=== PATIENT | female | born 1940 | race Caucasian/White ===

== ENCOUNTER 2016-08-18 08:00 | Outpatient (CLI) | payer OTHER, MEDICARE | END 2016-08-18 23:59 | DX: Z00.01 Encounter for general adult medical examination with abnormal findings (principal); R53.83 Other fatigue; E03.9 Hypothyroidism, unspecified ==

== ENCOUNTER 2018-12-06 11:48 | Outpatient (CLI) | payer OTHER, MEDICARE ==
[2018-12-06 17:27] LABS: BILIRUBIN,URINE NEGATIVE (NEGATIVE); GLUCOSE, URINE (UA) NEGATIVE (NEGATIVE); KETONES,URINE (UA) NEGATIVE (NEGATIVE); LEUKOCYTE ESTERASE, URINE NEGATIVE (NEGATIVE); NITRITE,URINE NEGATIVE (NEGATIVE); OCCULT BLOOD,URINE NEGATIVE (NEGATIVE); PROTEIN,URINE NEGATIVE (NEGATIVE); UROBILINOGEN,URINE 0.2 (NORMAL) E.U./dL (NORMAL)
[2018-12-06 17:33] LABS: BASOPHILS % (AUTO) 0.7 %; EOSINOPHILS # (AUTO) 0.2 10^3/uL (0.0-0.7); EOSINOPHILS % (AUTO) 3.7 %; HGB - HEMOGLOBIN 12.5 g/dL (12.0-16.0); LYMPHOCYTES # (AUTO) 1.2 10^3/uL (1.5-3.5); LYMPHOCYTES % (AUTO) 19.2 %; MEAN CORPUSCULAR HEMOGLOBIN 29.1 pg (27.0-31.0); MEAN CORPUSCULAR HGB CONC 32.9 g/dL (32.0-36.0); MEAN CORPUSCULAR VOLUME 88.4 fL (81.0-99.0); MEAN PLATELET VOLUME 7.4 fL (7.9-10.8); MONOCYTES # (AUTO) 0.6 10^3/uL (0.0-1.0); NEUTROPHILS # (AUTO) 4.3 10^3/uL (1.5-6.6); NEUTROPHILS % (AUTO) 67.4 %; PLT - PLATELET COUNT 234 10^3/uL (130-450); RED CELL DISTRIBUTION WIDTH 14.1 % (12.0-15.0); WHITE BLOOD COUNT 6.4 x10^3/uL (4.8-10.8)
[2018-12-06 17:43] LABS: ALBUMIN 3.7 g/dL (3.2-5.5); ALBUMIN/GLOBULIN RATIO 1.3 (1.0-2.2); ALKALINE PHOSPHATASE 70 IU/L (42-121); ALT ALANINE AMINOTRANSFERASE 19 IU/L (10-60); AST ASPARTATE AMINOTRANSFERASE 21 IU/L (10-42); BILIRUBIN,TOTAL 0.7 mg/dL (0.2-1.0); CALCIUM 8.9 mg/dL (8.5-10.3); CARBON DIOXIDE - CO2 26 mmol/L (21-32); CHLORIDE 101 mmol/L (101-111); CHOL/HDL RATIO 3.3 (<4.4); CHOLESTEROL 190 mg/dL; CREATININE 0.7 mg/dL (0.4-1.0); CRP HIGH SENSITIVITY 8.3 mg/L; GFR - MDRD 81 (>89); GLUCOSE 99 mg/dL (70-100); HDL CHOLESTEROL 58 mg/dL; LDL CHOLESTEROL,CALCULATED 124 mg/dL; LDL/HDL RATIO 2.1 (<4.4); SODIUM 135 mmol/L (135-145); TOTAL PROTEIN 6.6 g/dL (6.7-8.2); VLDL CHOLESTEROL 8 mg/dL
[2018-12-06 17:46] LABS: BACTERIA,URINE Rare /HPF (None Seen); CLARITY,URINE CLEAR (CLEAR); RBC,URINE 0-5 /HPF (0-5); SQUAMOUS EPITHELIAL CELL,UR RARE Squamous (<= Few)
[2018-12-06 17:51] LABS: HB2 TOTAL 13.4 g/dL; HEMOGLOBIN A1C 0.5 g/dL; HEMOGLOBIN A1C % 5.6 % (4.6-6.2)
[2018-12-06 17:54] LABS: THYROID STIMULATING HORMONE 2.66 uIU/mL (0.34-5.60)
[2018-12-06 17:56] LABS: FREE T4 (FREE THYROXINE) 1.03 ng/dL (0.58-1.64)
[2018-12-06 18:39] LABS: BUN - BLOOD UREA NITROGEN 21 mg/dL (6-20)
== END 2018-12-06 23:59 | disposition home or self-care (01) ==
LOC: LAB.F 11:48
PROVIDERS: ATTEND Family Medicine
DX: I10 Essential (primary) hypertension (principal); Z00.01 Encounter for general adult medical examination with abnormal findings; Z51.81 Encounter for therapeutic drug level monitoring; E03.9 Hypothyroidism, unspecified; E78.5 Hyperlipidemia, unspecified; E66.01 Morbid (severe) obesity due to excess calories; R73.01 Impaired fasting glucose
CPT/HCPCS: 36415; 80053; 80061; 81001; 83036; 83721; 84439; 84443; 85025; 86141

== ENCOUNTER 2019-04-10 13:59 | Outpatient (CLI) | payer OTHER, MEDICARE ==
[2019-04-10 18:11] LABS: THYROID STIMULATING HORMONE 1.18 uIU/mL (0.34-5.60)
[2019-04-10 18:13] LABS: FREE T4 (FREE THYROXINE) 0.86 ng/dL (0.58-1.64)
== END 2019-04-10 14:00 | disposition home or self-care (01) ==
LOC: LAB.S 13:59
PROVIDERS: ATTEND Family Medicine
DX: E03.9 Hypothyroidism, unspecified (principal)
CPT/HCPCS: 36415; 84439; 84443; 84481

== ENCOUNTER 2023-02-01 14:30 | Outpatient (CLI) | payer MEDICARE ==
--- NOTE | 2023-02-01 15:45 | XRAY Report ---
PROCEDURE: Chest 2 View X-Ray INDICATIONS: COUGH,SOB FOR 2 WEEKS TECHNIQUE: 2 views of the chest were acquired. COMPARISON: None. FINDINGS: Surgical changes and devices: None. Lungs and pleura: No pleural effusions or pneumothorax. Lungs are clear. Mediastinum: Mediastinal contours appear normal. Heart size is normal. Bones and chest wall: No suspicious bony lesions. Overlying soft tissues appear unremarkable. IMPRESSION: No acute cardiopulmonary process. Reviewed by: Braulio Zamorano MD on 02/01/2023 3:43 PM PDT Approved by: Braulio Zamorano MD on 02/01/2023 3:43 PM PDT Station ID: [id number]
== END 2023-02-01 14:31 | disposition home or self-care (01) ==
LOC: DI.S 14:30
PROVIDERS: ATTEND Family Medicine
DX: R05.9 Cough, unspecified (principal); R06.02 Shortness of breath